=== PATIENT | male | born 1985 | race Caucasian/White ===

== ENCOUNTER → 2020-10-29 | Outpatient (CLI) | payer BC | LOC: RAD 06:48 | DX: G44.89 Other headache syndrome (principal) ==

== ENCOUNTER 2020-11-11 13:49 | Outpatient (RCR) | payer BC | END 2021-02-09 | disposition home or self-care (01) | LOC: PT | DX: G44.89 Other headache syndrome (principal) ==

== ENCOUNTER → 2022-02-02 | Outpatient (CLI) | payer BC | LOC: RAD 12:50 | DX: N50.812 Left testicular pain (principal) ==